=== PATIENT | male | born 1940 | race Caucasian/White ===

== ENCOUNTER → 2017-09-05 07:52 | Outpatient (CLI) | payer MEDICARE, BC, SELFPAY | PROVIDERS: Family Provider Internal Medicine; PCP Internal Medicine; Visit Provider Urology | DX: C61 Malignant neoplasm of prostate (principal) | CPT/HCPCS: 36415; 84153 ==

== ENCOUNTER → 2017-09-14 08:20 | Outpatient (CLI) | payer MEDICARE, BC, SELFPAY ==
--- NOTE | 2017-09-14 08:23 | NM_ITS ---
CLINICAL: 77-year-old male with reported history of carcinoma of the prostate. WHOLE BODY 99m Tc MDP RADIONUCLIDE BONE SCINTIGRAPHY COMPARISON: None available FINDINGS: Following the intravenous administration of 27.2 mCi of 99m Tc MDP, whole body bone images reveal: 1. Multifocal increased radiopharmaceutical concentration is identified in the axial skeletal structures to include the proximal-mid sternum, left proximal clavicle, several bilateral anterior and posterior ribs, third, sixth and ninth thoracic vertebra, the first lumbar vertebra, the right iliac crest and iliac wing as well as focally apparent in the distal left femoral diaphysis and right proximal femoral metaphysis, the left mandibular ramus. 2. Enhanced tracer concentration is identified in the mid-lower cervical spine posteriorly on the left, fourth lumbar vertebra posteriorly on the left, bilateral posterior sacrum, right and left wrist articulations, the midfoot bilaterally, right forefoot, the acromioclavicular compartments of both shoulders. 3. The remaining skeletal structures are scintigraphically unremarkable with normal-appearing renal images and urinary bladder activity identified. Facilitated uptake noted in the bilateral mandible is most consistent with periostitis and/or periodontal disease. NM/Bone Scan Whole Body IMPRESSION: 1. The increase in radiopharmaceutical concentration multifocally defined in the appendicular, axial skeleton described above is consistent with osseous metastatic disease. 2. Degenerative arthritis is otherwise expressed in the cervical and lumbar spine, sacrum, wrists bilaterally, right-left midfoot, the right forefoot and bilateral shoulders. Electronically Signed: Robin Rose DO at 12:08 EST Tel , Service support ,
== END ==
PROVIDERS: Family Provider Internal Medicine; PCP Internal Medicine; Visit Provider Urology
DX: C61 Malignant neoplasm of prostate (principal)
CPT/HCPCS: 78306

== ENCOUNTER 2017-09-15 10:15 | Inpatient (IN) | payer MEDICARE, BC, SELFPAY ==
[2017-09-15] VITALS (14 sets, daily range): BP systolic 129–158; BP diastolic 74–89; PULSE 75–99; RESP 14–95; TEMP 36.6; O2SAT 22–96; BMI 33.5; BMI 33.6; BMI 33.1
--- NOTE | 2017-09-15 10:20 | EKG12_ITS ---
Test Reason : CP Blood Pressure : / mmHG Vent. Rate : 091 BPM Atrial Rate : 091 BPM P-R Int : 160 ms QRS Dur : 096 ms QT Int : 352 ms P-R-T Axes : 046 -09 046 degrees QTc Int : 432 ms Normal sinus rhythm Normal ECG Confirmed by ADAMS MCLAUGHLIN, JANEL ([id number]), technical editor CRISTINA OSHEA ([id number]) on 09/18/2017 12:58:28 PM Referred By: Eriberto Sibley Confirmed By:JANEL LAMAS MD
--- NOTE | 2017-09-15 10:20 | RAD_ITS ---
STUDY: X-RAY CHEST REASON FOR EXAM: Male, 77 years old. 3 week history of increasing shortness of breath. TECHNIQUE: AP and lateral views of the chest. COMPARISON: None. FINDINGS: EKG electrodes are seen. Mild degree of vascular congestion. Mild increased markings at the lung bases suggestive of mild bibasilar atelectasis and/or linear scarring. Normal size heart. Normal mediastinum and ame. Normal visualized pulmonary arteries. There is atherosclerotic tortuosity of the aortic arch and descending thoracic aorta. There are diffuse degenerative changes of the visualized thoracic spine. Normal visualized ribs, clavicles, and shoulders. There is no demonstrated abnormality of the visualized soft tissue structures of the upper abdomen. RAD/Chest PA and Lateral IMPRESSION: Mild degree of vascular congestion. Electronically Signed: Tobi Murrieta MD at 10:52 EST Tel [phone], Service support ,
[2017-09-15 10:41] LABS: Absolute Lymphocyte Count 0.73 X10^3/ul (0.83-4.51); Basophil# 0.04 X10^3/uL; Basophil% 0.5 % (0-1); Eosinophil# 0.12 X10^3/uL; Eosinophils% 1.4 % (0-5); Hematocrit 45.3 % (40-54); Hemoglobin 15.3 g/dl (13.0-16.5); Lymphocyte # 0.73 X10^3/ul (4.0); Lymphocyte % 8.5 % (19-41); Mean Corp Hgb Conc 33.8 g/gl (32-36); Mean Corpuscular Hgb 31.7 pg (27.0-32.0); Mean Corpuscular Volume 93.8 fL (80-94); Mean Platelet Vol. 10.6 fl (6.2-12.0); Monocyte# 0.64 X10^3/uL; Monocyte% 7.4 % (0-10); Neutrophil # 7.04 X10^3/uL (2.7-7.7); Neutrophil % 81.7 % (47-70); Platelet Count 181 K/mm3 (150-450); RBC Distribution Width CV 12.9 % (11.6-14.6); RBC Distribution Width SD 43.1 fl (35.1-43.9); Red Blood Count 4.83 M/mm3 (4.6-6.2); White Blood Count 8.6 K/mm3 (4.4-11.0)
[2017-09-15 10:42] LABS: POSITIVE COUNT NO; POSITIVE DIFFERENTIAL NO; POSITIVE MORPHOLOGY NO
--- NOTE | 2017-09-15 10:44 | ED.RN ---
NO OLD EKG
[2017-09-15] MEDS: Ondansetron 4 MG/2 ML Vial IV (10:49)
[2017-09-15 11:03] LABS: Lactic Acid 1.3 mmol/L (0.4-2.0)
[2017-09-15 12:05] LABS: BNP,B-Type NATRIURETIC PEPTIDE 20.2 pg/mL (0-100)
[2017-09-15 12:55] LABS: Anion Gap 6 (5-15); BUN 23 mg/dL (7-18); BUN/Creat Ratio 30.2 RATIO (10-20); Chloride 105 mmol/L (98-107); Creatinine, Serum 0.76 mg/dL (0.70-1.30); EST Glomerular Filtration Rate 106 mL/min (>60); Est Glom Filt Rate - Afr Amer 128 mL/min (>60); Estimated Creatinine Clearance 63.88 ml/min; Glucose 150 mg/dL (74-106); Sodium Level 140 mmol/L (136-145)
--- NOTE | 2017-09-15 13:50 | ED.DCSUM_ITS ---
- ER Visit Summary Date of Service: 09/15/17 Chief Complaint: Pleuritic chest pain and back pain that started 3 weeks ago resents because of midsternal chest discomfort with dyspnea and palpitations. History of Present Illness: The patient is a 77 M has history of type 2 diabetes for 10 years presents with atypical chest pain and dyspnea. Last evening he complained of orthopnea and noted that his legs are swollen, which is not normal for him. He has no complaint of leg pain or discoloration. He denies history of PE or DVT. He has no risk factors. States the pain is in the middle of his chest radiates to both shoulders and through to his back. He did not describe it as a ripping or tearing pain. He has no risk factors for aortic dissection. He denies symptoms of claudication. Physical Examination: Patient is an obese gentleman with a BMI of 33. Vital signs remarkable blood pressure 158/88. Respiratory rate 22 with a pulse ox 95% . Head is atraumatic normocephalic. Pupils are equal round reactive. Extraocular muscles are intact. TMs are pearly white with landmarks noted. Nares patent with no drainage. Posterior pharynx without erythema or exudate. Uvula is midline. There is no dysphonia or dysphasia. Trachea is midline. There is no stridor with auscultation of the neck. Lungs are remarkable for rales at the left base. Heart is rapid and regular. There is no murmur, gallop or rub. Abdomen is soft nontender with no palpable subtle mass or abdominal bruit. Lower extremity exam is remarkable 1-2+ pitting edema. Pulses are palpable upper and lower extremity. Neuro exam is nonfocal. Test Results: The sinus rhythm rate of 91 and normal. CBC is normal. BMP is remarkable for a glucose of 150. Troponin is less than 0.02. BNP is normal at 20.2. Lactate is normal at 1.2. Chest x-ray reveals normal mediastinal cardiac silhouette with mild CHF. Emergency Department Course and Treatment: Differential includes noncardiac chest pain, GI etiology, aortic dissection however since he has no risk factors this is been going on for 3 weeks and not described as a ripping or tearing pain and having a crescendo and decrescendo in intensity feel this is unlikely. He was treated with aspirin. Treatment Plan: Since patient has lymphedema with new onset CHF and chest pain with a history of diabetes he may have an atypical presentation. Hospitalist has been paged for admission and further workup. Disposition: PCU Impression: 1. Midsternal chest discomfort 2. Dyspnea 3. Mild congestive heart failure 4. Bilateral lymphedema 5. Hypertension in a nonhypertensive patient This note was generated with [employer] dictation software. It may contain incorrect words, spelling, and punctuation that were not noted in review of the chart prior to signing ED Disposition - Plan for ED Patient: Chief Complaint: Chest Pain Referrals: Claudio Schmitz MD [Primary Care Provider] -
--- NOTE | 2017-09-15 16:28 | ECHOD_ITS ---
Version 2 Reason For Study: CHF Procedure This was a 2D Doppler, Color Flow transthoracic echocardiogram. Exam performed portable in patient room. Left Ventricle Normal LV size. Mild concentric left ventricular hypertrophy. The estimated ejection fraction is 65 %. Stage 2 diastolic dysfunction. Right Ventricle Normal right ventricle. Atria Normal left atrium. Normal right atrium. Mitral Valve The mitral valve is structurally normal. No prolapse or stenosis seen. Trivial mitral valve insufficiency. Tricuspid Valve Mild tricuspid valve insufficiency. Right ventricular systolic pressure estimated to be 40 mmHg. Aortic Valve Aortic sclerosis, no stenosis. Pulmonic Valve Mild (1+) eccentric pulmonic valve insufficiency. Great Vessels Normal aortic root. Pericardium/Pleural No pericardial effusion. MMode/2D Measurements & Calculations LVIDd: 4.5 cm IVSd: 1.2 cm Ao root diam: 3.6 cm LVIDs: 2.7 cm LVPWd: 0.98 cm LA dimension: 3.9 cm RVDd: 3.8 cm FS: 38.6 % LAV(MOD-bp): 52.1 ml LA A4 area: 20.1 cm2 RA A4 area: 12.5 cm2 LAV(MOD-bp) Indexed: 23.4 ml/m2 LAV(MOD-sp2): 43.8 ml LAV(MOD-sp4): 56.7 ml Doppler Measurements & Calculations MV E max aric: 100.1 cm/sec Lat Peak E' Aric: 8.8 cm/sec Med Peak E' Aric: 7.7 cm/sec MV A max aric: 131.7 cm/sec E/E' lat: 11.3 E/E' med: 12.9 MV E/A: 0.76 Ao V2 max: 156.9 cm/sec LV V1 max: 123.0 cm/sec PA V2 max: 86.7 cm/sec Ao max P.8 mmHg LV V1 max P.1 mmHg Ao V2 mean: 109.2 cm/sec Ao mean P.3 mmHg Ao V2 VTI: 31.3 cm TR max aric: 295.8 cm/sec TR max P.3 mmHg Interpretation Summary Mild concentric left ventricular hypertrophy. The estimated ejection fraction is 65 %. Stage 2 diastolic dysfunction. Mild tricuspid valve insufficiency. Right ventricular systolic pressure estimated to be 40 mmHg., suggestive of mild pulmonary hypertension Ordering Physician: Kerri Proctor Referring Physician: Claudio Schmitz Performed By: Cher Urbano, RORY, RVT
--- NOTE | 2017-09-15 16:28 | CT_ITS ---
STUDY: CTA CHEST REASON FOR EXAM: Male, 77 years old. Chest pain RADIATION DOSAGE (If Supplied By Facility): CTDIvol = ( 11.08 ) mGy, DLP = ( 667.21 ) mGycm TECHNIQUE: The examination was performed with the intravenous administration of 100CC ml of Isovue 370 contrast material. Post-processing of the angiographic images was performed, with multiplanar reformation and 3D reconstruction. Individualized dose optimization techniques were used for this CT. COMPARISON: None. FINDINGS: Examination of the pulmonary arteries is less than optimal due to suboptimal bolus technique and respiratory motion artifact.. There is no definitive evidence for pulmonary embolus however if strong clinical concern for poor embolus would recommend V/Q scan and Doppler study of the deep venous system of lower extremities Atherosclerotic changes of the aorta without evidence for aneurysm. There is no demonstrated aortic dissection. The heart is upper normal size however there appears to be multivessel coronary artery disease. There is multinodular goiter with retrosternal extension on the left Normal hilar regions. Normal visualized trachea and bronchi. The lungs are well expanded. There is mild diffuse interstitial thickening and centrilobular emphysematous changes. There is tiny calcified granuloma in left upper lobe. There is generalized bronchial wall thickening in the lower lobes. There also appear to be bibasilar infiltrates or atelectasis. Normal pleura. Normal chest wall structures. Dorsal spine demonstrates moderate spondylosis There are focal areas of increased bony sclerosis within the dorsal vertebral bodies at approximately the levels of T3 and T6 consistent with blastic metastasis. There is suggestion of pathologic fracture of T6. MRI would be helpful for further assessment There are multiple cysts within the liver. Small hypodense nodule within the left lobe of the thyroid most likely benign adenoma however this may be better assessed with MRI if clinically indicated CT/CTA Chest W/WO Contrast IMPRESSION: Limited study technically for pulmonary embolus but no definitive evidence for intraluminal clot. 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 MRI would be useful for more definitive evaluation if clinically warranted. Bibasilar atelectasis or infiltrates. Electronically Signed: Anthony Brito MD at 17:47 EST , Service support ,
--- NOTE | 2017-09-15 17:10 | PCM.HP.STD ---
Problem List (1) Chest pain Status: Acute Qualifiers: Chest pain type: chest pain on breathing Qualified Code(s): R07.1 - Chest pain on breathing; R07.81 - Pleurodynia (2) Dyspnea Status: Acute Qualifiers: Dyspnea type: shortness of breath Qualified Code(s): R06.02 - Shortness of breath; R06.00 - Dyspnea, unspecified; R06.01 - Orthopnea (3) Pulmonary edema Status: Acute (4) DM2 (diabetes mellitus, type 2) Status: Chronic Qualifiers: Diabetes mellitus complication status: without complication Diabetes mellitus supervisor intermediates insulin use: without fdc use Qualified Code(s): E11.9 - Type 2 diabetes mellitus without complications (5) History of prostate cancer Status: Chronic History of Present Illness Date of Admission: 09/15/17 Chief Complaint: Chest pain, dyspnea Patient is a 77 years old male who presents with 3 weeks history of sharp, intermittent, brief pain in the posterior chest wall, which seems to be moving all over his back. He also has increasing shortness of breath, along with orthopnea. He denied of any cough, dizziness, palpitations, or wheezing. He has no prior cardiac problems or pulmonary problems. Troponin was normal, BNP was 20, however, CXR showed mild degree of vascular congestion. He is concerned of peripheral edema, but he has no edema on examination today. Past Medical History Past Medical History (Chronic Problems): Chronic Problems DM2 (diabetes mellitus, type 2) (Chronic) History of prostate cancer (Chronic) Allergies No Known Allergies Allergy (Verified 09/15/17 10:22) Home Medications: Ambulatory Orders Medication Instructions Recorded Fluticasone 0.05% [Flonase Nasal 1 spray NASAL DAILY 09/15/17 Almond] Metformin HCl [Glucophage] 500 mg PO DAILY 09/15/17 Multivitamin [Daily Multiple 1 each PO DAILY 09/15/17 Vitamin] Zolpidem Tartrate [Ambien] 5 - 10 mg PO QHS 09/15/17 Smoking Status: Former smoker Tobacco Use: Non-smoker Alcohol: None Drugs: None - *Family History Maternal History Items: No pertinent history Review of Systems Comment: ROS: In general: Patient has been in good health, denied of any constitutional symptoms, such as weight loss, or gain, fever, chills, or night sweats. Patient denied of any profound fatigue. HEENT: Unremarkable. Patient denied of any dizziness, chronic headache, blurred vision, double vision, dry mouth, or nasal congestion. CV/respiratory: See HPI. GI: Patient denied any abdominal pain, nausea, vomiting, diarrhea, constipation, melena, or hematochezia. : Patient denied any significant urinary symptoms. Neurology: Unremarkable. There is no history of seizure as an adult. Psychological: Unremarkable. ?. Endocrine: Unremarkable. Musculoskeletal: Unremarkable. VTE Information - Inpt Only VTE Present on Admission: No VTE Mechan Device Prophylaxis: SCD's VTE Pharm Prophylaxis ordered?: Yes Patient Problems: Active and Suspected Problems Chest pain (Acute) Dyspnea (Acute) Pulmonary edema (Acute) Objective: In general, patient is a well-nourished and developed adult. HEENT: Head is atraumatic, and normocephalic. Pupils are equal, round, and reactive to light and accommodations. Neck is supple. There is no lymphadenopathy, or thyromegaly. Oral mucosa is pink, and moist. There are no lesions. Heart: Auscultation is normal with regular rhythm and rate. There is no extra heart sounds, or murmurs. S1 and S2 are present. Point of maximal impulse is not displaced. Chest pain not reproducible. Lungs: Diffuse wheezing bilaterally at upper lung guy. Abdomen: Abdominal wall is non-tender, and non-distended. There is no palpable mass or organomegaly. Normoactive bowel sounds are present. Extremities: There is no cyanosis or clubbing. Peripheral pulses are palpable. There is no edema. Skin: There are no any skin discoloration or lesions. Neurological: CN II - XII are intact. Sensory and motor functions are grossly normal with no obvious deficit. Cerebellar functions are within normal range. Gait was not tested. - Physical Exam Vital Signs Temp Pulse Resp BP Pulse Ox 98 F 99 18 132/89 H 94 09/15/17 16:35 09/15/17 16:41 09/15/17 16:35 09/15/17 16:35 09/15/17 16:35 Oxygen Delivery Method Room Air Weight: 230 lb 13.184 oz Body Mass Index (BMI) 33.1 Diagnostic Data Chest X-Ray 09/15/17 10:20 IMPRESSION: Mild degree of vascular congestion. Electronically Signed: Tobi Murrieta MD at 10:52 EST Tel [phone], Service support , WHOLE BODY 99m Tc MDP RADIONUCLIDE BONE SCINTIGRAPHY COMPARISON: None available FINDINGS: Following the intravenous administration of 27.2 mCi of 99m Tc MDP, whole body bone images reveal: 1. Multifocal increased radiopharmaceutical concentration is identified in the axial skeletal structures to include the proximal-mid sternum, left proximal clavicle, several bilateral anterior and posterior ribs, third, sixth and ninth thoracic vertebra, the first lumbar vertebra, the right iliac crest and iliac wing as well as focally apparent in the distal left femoral diaphysis and right proximal femoral metaphysis, the left mandibular ramus. 2. Enhanced tracer concentration is identified in the mid-lower cervical spine posteriorly on the left, fourth lumbar vertebra posteriorly on the left, bilateral posterior sacrum, right and left wrist articulations, the midfoot bilaterally, right forefoot, the acromioclavicular compartments of both shoulders. 3. The remaining skeletal structures are scintigraphically unremarkable with normal-appearing renal images and urinary bladder activity identified. Facilitated uptake noted in the bilateral mandible is most consistent with periostitis and/or periodontal disease. NM/Bone Scan Whole Body IMPRESSION: 1. The increase in radiopharmaceutical concentration multifocally defined in the appendicular, axial skeleton described above is consistent with osseous metastatic disease. 2. Degenerative arthritis is otherwise expressed in the cervical and lumbar spine, sacrum, wrists bilaterally, right-left midfoot, the right forefoot and bilateral shoulders. Assessment/Plan Active and Suspected Problems Chest pain (Acute) Dyspnea (Acute) Pulmonary edema (Acute) Patient is a 77 years old male who presents with 3 weeks history of sharp, intermittent, brief pain in the posterior chest wall, which seems to be moving all over his back. He also has increasing shortness of breath, along with orthopnea. He denied of any cough, dizziness, palpitations, or wheezing. He has no prior cardiac problems or pulmonary problems. Troponin was normal, BNP was 20, however, CXR showed mild degree of vascular congestion. #1 Atypical chest pain with dyspnea. BNP is normal, but CXR is consistent with pulmonary edema. He has atypical chest pain, concerning of PE. CTA of chest ordered, result is pending. Rule out myocardial infarction with serial enzymes. Oxygen supplement. He has significant bronchospasm with wheezing. Start DuoNeb aerosol treatment and albuterol Med Neb prn. Lasix 20 mg IV bid for presumed pulmonary edema with possible CHF. 2D-echocardiogram requested. #2 History of prostate cancer. He had elevation of PSA recently. Urology had ordered bone scan on 09/14/17. I just reviewed the result, which is consistent with metastatic disease. Consult urology also. #3 DM II. Hold metformin. Add sliding scale insulin. VTE prophylaxis: Lovenox. GI prophylaxis: PPI po. Patient is full code. Disposition: To be determined. Code Visit Inpatient E&M: 99391 Init Hosp L3
[2017-09-15 18:21] LABS: Bedside Glucose 191 mg/dL (70-110)
[2017-09-15] MEDS: Ipratropium/Albuterol Sulfate 3 ML AMPUL.NEB INHALATION (19:39)
[2017-09-15] MEDS: Furosemide 20 MG/2 ML VIAL IV (22:14)
[2017-09-15] MEDS: 0.9% NaCl Peripheral Flush Adult/Peds IV (22:14)
[2017-09-15 22:26] LABS: Bedside Glucose 191 mg/dL (70-110)
[2017-09-16] VITALS (9 sets, daily range): BP systolic 119–143; BP diastolic 57–65; PULSE 77–91; RESP 16–20; TEMP 36.5–36.9; O2SAT 92–96
[2017-09-16] MEDS: Acetaminophen 325 MG Tablet 650 MG PO (00:27)
[2017-09-16] MEDS: Zolpidem Tartrate 5 MG Tablet PO (00:27)
[2017-09-16 03:08] LABS: Hematocrit 43.4 % (40-54); Hemoglobin 14.4 g/dl (13.0-16.5); Mean Corp Hgb Conc 33.2 g/gl (32-36); Mean Corpuscular Hgb 31.2 pg (27.0-32.0); Mean Corpuscular Volume 93.9 fL (80-94); Mean Platelet Vol. 10.6 fl (6.2-12.0); Platelet Count 157 K/mm3 (150-450); RBC Distribution Width CV 12.9 % (11.6-14.6); RBC Distribution Width SD 44.2 fl (35.1-43.9); Red Blood Count 4.62 M/mm3 (4.6-6.2); White Blood Count 13.3 K/mm3 (4.4-11.0)
[2017-09-16 03:13] LABS: Scan Indicated on CBC? Y/N NO
[2017-09-16 05:35] LABS: Anion Gap 14 (5-15); BUN 21 mg/dL (7-18); BUN/Creat Ratio 26.5 RATIO (10-20); Calcium,Total 8.5 mg/dL (8.5-10.1); Chloride 100 mmol/L (98-107); Cholesterol 134 mg/dL (200); Creatinine, Serum 0.79 mg/dL (0.70-1.30); EST Glomerular Filtration Rate 101 mL/min (>60); Est Glom Filt Rate - Afr Amer 122 mL/min (>60); Estimated Creatinine Clearance 63.88 ml/min; Glucose 174 mg/dL (74-106); High Density Lipoprotein 56 mg/dL; Potassium 3.5 mmol/L (3.5-5.1); Sodium Level 135 mmol/L (136-145); Thyroid Stim Hormone (TSH) 0.34 uIU/mL (0.358-3.74); Triglycerides 50 mg/dL; Very Low Density Lipoprotein 10 mg/dL (5-40)
[2017-09-16 07:11] LABS: Bedside Glucose 143 mg/dL (70-110)
[2017-09-16] MEDS: Ipratropium/Albuterol Sulfate 3 ML AMPUL.NEB INHALATION ×2 (07:14→13:01)
[2017-09-16] MEDS: Aspirin E.C. 81 MG Tablet PO (09:16)
[2017-09-16] MEDS: Enoxaparin 40 MG/0.4 ML Syringe SC (09:18)
[2017-09-16] MEDS: Pantoprazole Sodium 20 MG Tablet PO (09:19)
--- NOTE | 2017-09-16 10:08 | CASEMGMT ---
Chart Review: Pt presented to the ED on 09/15/17 with c/o pleuritic chest pain and back pain that started 3 weeks ago, and states increasing midsternal chest discomfort with dyspnea and palpitations. Patient underwent Chest CTA which revealed suspicious finding of probable blastic mets to the upper and mid thoracic spine with findings also suspicious for pathologic fracture of the mid dorsal spine at approximately the level ot T6. Past medical history includes history DM2 and prostate cancer. Dr. Dumont was consulted. Patient is independent, up SBA in hospital room, established with community providers, has insurance, and is . Patient's spouse has been ill and he has voiced concern for her and is worried about the possible metastatic disease. Patient uses [facility] at [facility] and has prescription covered. OBI GUTIERREZ made social work referral for coping and biopsychosocial assessment. RN BRENDA will continue to follow for transition planning and care coordination. Disposition Plan: Anticipate home, final transition planning/care coordination/home-going needs TBD by hospital course.
[2017-09-16 11:16] LABS: Bedside Glucose 167 mg/dL (70-110)
--- NOTE | 2017-09-16 12:50 | CASEMGMT ---
SW spoke w/pt in room due to diagnosis, needing support, also being sick. Pt's sons Og and Danny are in the room as well. Pt states spoke w/the two hospitalists, is hoping to speak w/Dr. Dumont today to get further information. Pt lives home w/, he states she has the flu possibly, is not feeling well and is weak. has not been to the doctor yet. Pt and are normally independent at home, pt states his sons are helpful whenever anything is needed. Og lives local and helps with snowblowing or whatever else is needed. Son Danny normally lives in [place] but is in town right now. Son Og confirms his parents are independent but they are available to help with anything that is needed. Pt states he also has a daughter in [place] who is supportive as well. Pt and family not identifying any physical or supportive needs at this time. Pt does not anticipate any homegoing needs. Pt does have questions for Dr. Dumont, asked if he is coming in. SW checked w/charge account clerk, Dr. Dumont is consulted and has been contacted. SW let pt and sons know this. SW remains available for support to pt and family as more is learned about his diagnosis. YEISON Calvo, [employer] COUNTER [employer] WR[employer]PER
--- NOTE | 2017-09-16 13:08 | PCM.PROGNOTE ---
<Daylin Ray - Last Filed: 09/16/17 13:30> Subjective: Patient seen and examined. Denies chest pain, shortness of breath. States he feels generally weak due to not sleeping well last night. States he has not been having chest pain prior to admission, his pain was located in his back, between shoulder blades and associated with activity involving repetitive movements of upper extremities. He describes recently washing his vehicle and pain began during that time. Patient states he is very active and walks on a treadmill frequently approximately 20 minutes at a time. He denies chest pain, shortness of breath during walking on the treadmill or other exertion. - Physical Exam General: Alert, Oriented x3, Cooperative, No apparent distress HEENT: Atraumatic, PERRLA, EOMI, Normocephalic Neck: Supple, No JVD, Negative Carotid Bruits Lungs: Clear to auscultation, Diminished Cardiovascular: Regular rate, Regular Rhythm, Normal S1, Normal S2, No murmurs Abdomen: Bowel Sounds Present, Soft, Non Tender, Non-Distended Extremities: No clubbing, No cyanosis, Edema - Non-pitting BLLE. Skin: No rashes, No breakdown Musculoskeletal: No Tenderness to Palpation of Joints or Extremities Neurological: Cranial nerves II-XII grossly intact, Neuro grossly intact Psych/Mental Status: Normal Affect, Appropriate Vital Signs Temp Pulse Resp BP Pulse Ox 98 F 81 18 124/64 H 95 09/16/17 10:00 09/16/17 13:02 09/16/17 13:02 09/16/17 10:00 09/16/17 10:00 Oxygen Flow Rate 2 Oxygen Delivery Method Room Air Weight: 104.7 kg Body Mass Index (BMI) 33.1 Intake and Output for Last 24 Hours 09/14/17 09/15/17 09/16/17 23:59 23:59 23:59 Intake Total 720 / 720 1080 / 1080 Balance 720 / 720 1080 / 1080 Laboratory Tests Past 24 Hrs 09/15/17 09/15/17 09/16/17 17:01 20:41 02:48 WBC RBC Hgb Hct MCV MCH MCHC RDW RDW Differential Plt Count MPV Sodium 135 L Potassium 3.5 Chloride 100 Carbon Dioxide 21.0 Anion Gap 14 BUN 21 H Creatinine 0.79 Estim Creat Clear Calc 63.88 Est GFR (MDRD) Af Amer 122 Est GFR (MDRD) Non-Af 101 BUN/Creatinine Ratio 26.5 H Glucose 174 H Calcium 8.5 Troponin I < 0.02 < 0.02 Triglycerides 50 Cholesterol 134 LDL Cholesterol 68 VLDL Cholesterol 10 HDL Cholesterol 56 TSH 0.34 L 09/16/17 09/16/17 02:48 02:48 WBC 13.3 H RBC 4.62 Hgb 14.4 Hct 43.4 MCV 93.9 MCH 31.2 MCHC 33.2 RDW 12.9 RDW Differential 44.2 H Plt Count 157 MPV 10.6 Sodium Potassium Chloride Carbon Dioxide Anion Gap BUN Creatinine Estim Creat Clear Calc Est GFR (MDRD) Af Amer Est GFR (MDRD) Non-Af BUN/Creatinine Ratio Glucose Calcium Troponin I < 0.02 Triglycerides Cholesterol LDL Cholesterol VLDL Cholesterol HDL Cholesterol TSH POC Glucose 09/16/17 09/16/17 09/15/17 11:10 06:58 22:09 POC Glucose 167 H 143 H 191 H 09/15/17 18:04 POC Glucose 191 H Assessment/Plan 1. Back pain-patient denies chest pain. Denies pain radiation. Patient states is pain between his shoulder blades which is related to repetitive movement. Troponin negative. EKG without evidence of ischemia. 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 Osseous metastatic disease. Suspect his pain may be related to bone metastasis. Dr. Dumont to see patient today and discussed test results that were completed as outpatient, ordered by Dr. Sibley. OxyIR as needed for pain. 2. Pulmonary edema, suspected new onset CHF-CT of chest showed no PE. Chronic emphysematous changes. Possible blastic metastasis in the upper and mid thoracic spine. Bibasilar atelectasis or infiltrates. Patient denies shortness of breath. Oxygen stable on room air. Patient states he chronically gets mild lower extremity edema which he states began after varicose vein intervention. Echocardiogram pending. Continue IV Lasix 20 mg twice daily. 3. Type 2 diabetes mellitus-on metformin which is on hold. Accu-Cheks before meals at bedtime with sliding scale insulin. 4. History of prostate cancer-patient was originally diagnosed 10 years ago and had been in remission. Recently he had noted increase in PSA. Following with Dr. Dumont who is to see patient today. Recent bone scan results as noted above. PSA 09/05/17 15.10. DVT prophylaxis-Lovenox subcu. This patient was seen by RADHA Pina under the supervision of Dr. Ingram. <Nichol Ingram - Last Filed: 09/16/17 15:27> - Physical Exam Vital Signs Temp Pulse Resp BP Pulse Ox 98 F 83 18 124/64 H 95 09/16/17 10:00 09/16/17 13:02 09/16/17 13:02 09/16/17 10:00 09/16/17 10:00 Oxygen Flow Rate 2 Oxygen Delivery Method Room Air Weight: 104.7 kg Body Mass Index (BMI) 33.1 Intake and Output for Last 24 Hours 09/14/17 09/15/17 09/16/17 23:59 23:59 23:59 Intake Total 720 / 720 1080 / 1080 Balance 720 / 720 1080 / 1080 Laboratory Tests Past 24 Hrs 09/15/17 09/15/17 09/16/17 17:01 20:41 02:48 WBC RBC Hgb Hct MCV MCH MCHC RDW RDW Differential Plt Count MPV Sodium 135 L Potassium 3.5 Chloride 100 Carbon Dioxide 21.0 Anion Gap 14 BUN 21 H Creatinine 0.79 Estim Creat Clear Calc 63.88 Est GFR (MDRD) Af Amer 122 Est GFR (MDRD) Non-Af 101 BUN/Creatinine Ratio 26.5 H Glucose 174 H Calcium 8.5 Troponin I < 0.02 < 0.02 Triglycerides 50 Cholesterol 134 LDL Cholesterol 68 VLDL Cholesterol 10 HDL Cholesterol 56 TSH 0.34 L 09/16/17 09/16/17 02:48 02:48 WBC 13.3 H RBC 4.62 Hgb 14.4 Hct 43.4 MCV 93.9 MCH 31.2 MCHC 33.2 RDW 12.9 RDW Differential 44.2 H Plt Count 157 MPV 10.6 Sodium Potassium Chloride Carbon Dioxide Anion Gap BUN Creatinine Estim Creat Clear Calc Est GFR (MDRD) Af Amer Est GFR (MDRD) Non-Af BUN/Creatinine Ratio Glucose Calcium Troponin I < 0.02 Triglycerides Cholesterol LDL Cholesterol VLDL Cholesterol HDL Cholesterol TSH POC Glucose 09/16/17 09/16/17 09/15/17 11:10 06:58 22:09 POC Glucose 167 H 143 H 191 H 09/15/17 18:04 POC Glucose 191 H Assessment/Plan Patient was seen and examined independently of nurse practitioner, Daylin Ray. Interval hx and physical exam as well as assessment and plan as per her notes. Patient feels better. No posterior chest pain. Denies fever or chills or palpitations. 2d-echo is normal. Will be discharged to follow-up with Dr. Dumont. Code Visit Inpatient E&M: 21248 Subs Hosp L2
--- NOTE | 2017-09-16 13:54 | PCM.CONS.GEN ---
Reason for Consult Date of Consultation: 09/16/17 History of Present Illness: The patient is a 77 year old M because of back pain, mild S OB. Patient has a history of CA of prostate. He was treated in 2009 with hormone deprivation and radiation at [facility] in [place]. Stopped after 2 years. His PSA has been continually low. Last year was 1.?, Then had a recent increase up to 15. He was by Dr. Dinero and started on Eligard (3 month LHRH agonist ) and this was started possibly 8-12 days ago. On this admission due to his history he had a bone scan performed which showed metastatic disease involving numerous areas of thoracic spine and right anterior ribs and his PSA is now over 15. At this point as he is on hormone deprivation would also add Casodex 50 mg daily. I will stop the ketoconazole. After receiving the Eligard there is often a testosterone storm, which could increased pain from bony metastatic disease. Over this usually resolves within a few days. Discussion with patient and his sons and the all the room today. At this point would continue with hormone deprivation and plan on adding Casodex at the time of discharge. Would recommend PSA be done prior to his next office visit. He had seen in the past and we discussed a hernia repair. If that still bothers him would proceed with that and bilateral orchiectomy. All this has been discussed with patient as well as other chemotherapy but would not start anything at this time Now recommend starting Casodex 50 mg daily which she can take when he was home. And then follow-up as scheduled in the office with a PSA prior to the next appointment which should be in about 2 months.] Past Medical History Past Medical History (Chronic Problems): Chronic Problems DM2 (diabetes mellitus, type 2) (Chronic) History of prostate cancer (Chronic) Allergies No Known Allergies Allergy (Verified 09/15/17 10:22) Home Medications: Ambulatory Orders Medication Instructions Recorded Fluticasone 0.05% [Flonase Nasal 1 spray NASAL DAILY 09/15/17 [place]] Metformin HCl [Glucophage] 500 mg PO DAILY 09/15/17 Multivitamin [Daily Multiple 1 each PO DAILY 09/15/17 Vitamin] Zolpidem Tartrate [Ambien] 5 - 10 mg PO QHS 09/15/17 Smoking Status: Former smoker Tobacco Use: Non-smoker Alcohol: None Drugs: None - *Family History Maternal History Items: No pertinent history Patient Problems: Active and Suspected Problems Chest pain (Acute) Dyspnea (Acute) Pulmonary edema (Acute) - Physical Exam Vital Signs Temp Pulse Resp BP Pulse Ox 98 F 83 18 124/64 H 95 09/16/17 10:00 09/16/17 13:02 09/16/17 13:02 09/16/17 10:00 09/16/17 10:00 Oxygen Flow Rate 2 Oxygen Delivery Method Room Air Weight: 104.7 kg Body Mass Index (BMI) 33.1 Intake and Output for Last 24 Hours 09/14/17 09/15/17 09/16/17 23:59 23:59 23:59 Intake Total 720 / 720 1080 / 1080 Balance 720 / 720 1080 / 1080 Laboratory Tests Past 24 Hrs 09/15/17 09/15/17 09/16/17 17:01 20:41 02:48 WBC RBC Hgb Hct MCV MCH MCHC RDW RDW Differential Plt Count MPV Sodium 135 L Potassium 3.5 Chloride 100 Carbon Dioxide 21.0 Anion Gap 14 BUN 21 H Creatinine 0.79 Estim Creat Clear Calc 63.88 Est GFR (MDRD) Af Amer 122 Est GFR (MDRD) Non-Af 101 BUN/Creatinine Ratio 26.5 H Glucose 174 H Calcium 8.5 Troponin I < 0.02 < 0.02 Triglycerides 50 Cholesterol 134 LDL Cholesterol 68 VLDL Cholesterol 10 HDL Cholesterol 56 TSH 0.34 L 09/16/17 09/16/17 02:48 02:48 WBC 13.3 H RBC 4.62 Hgb 14.4 Hct 43.4 MCV 93.9 MCH 31.2 MCHC 33.2 RDW 12.9 RDW Differential 44.2 H Plt Count 157 MPV 10.6 Sodium Potassium Chloride Carbon Dioxide Anion Gap BUN Creatinine Estim Creat Clear Calc Est GFR (MDRD) Af Amer Est GFR (MDRD) Non-Af BUN/Creatinine Ratio Glucose Calcium Troponin I < 0.02 Triglycerides Cholesterol LDL Cholesterol VLDL Cholesterol HDL Cholesterol TSH POC Glucose 09/16/17 09/16/17 09/15/17 11:10 06:58 22:09 POC Glucose 167 H 143 H 191 H 09/15/17 18:04 POC Glucose 191 H Assessment/Plan Active and Suspected Problems Chest pain (Acute) Dyspnea (Acute) Pulmonary edema (Acute)
--- NOTE | 2017-09-16 14:45 | PCM.DC ---
- Discharge Diagnoses Current Active Problems: Current Active and Chronic Problems Chest pain (Acute) Dyspnea (Acute) Pulmonary edema (Acute) DM2 (diabetes mellitus, type 2) (Chronic) History of prostate cancer (Chronic) You will use the following diet at home:: No restrictions Discharge Activity: Return to Normal Activity Call your doctor if you observe: Fever of 101 or Higher, Shortness of breath, Dizziness, Fainting spells, Chest pain, Increased palpitations (irregular heartbeat) Allergies/Adverse Reactions: Allergies No Known Allergies Allergy (Verified 09/15/17 10:22) Medications to take at Discharge Fluticasone 0.05% [Flonase Nasal [place]] 1 spray NASAL DAILY 09/15/17 Metformin HCl [Glucophage] 500 mg PO DAILY 09/15/17 Multivitamin [Daily Multiple Vitamin] 1 each PO DAILY 09/15/17 Zolpidem Tartrate [Ambien] 5 - 10 mg PO QHS 09/15/17 Bicalutamide [Casodex] 50 mg PO DAILY #30 tab 09/16/17 The following prescriptions were given: Bicalutamide [Casodex] 50 mg PO DAILY #30 tab Primary Care Physician: Claudio Schmitz MD [Primary Care Provider] - Please follow up with your Primary Care Physician in: 1-2 Weeks Please Follow Up With: Eriberto Sibley MD - Complete PSA prior to office visit. When: 6-8 Weeks Proposed Discharge Date: 09/16/17
--- NOTE | 2017-09-16 14:57 | DS.PCM_ITS ---
Discharge Date and Diagnosis Date of Admission: 09/15/17 Date of Discharge: 09/16/17 - Primary Discharge Diagnosis Active and Suspected Problems Back pain- secondary to new dx bony metastatic disease Recurrent prostate cancer Mild pulmonary edema with preserved ejection fraction - Secondary Discharge Diagnosis Chronic Problems DM2 (diabetes mellitus, type 2) (Chronic) History of prostate cancer (Chronic) Hospital Course and Treatment Imaging Results: Diagnostic Data Chest X-Ray 09/15/17 10:20 IMPRESSION: Mild degree of vascular congestion. Electronically Signed: Tobi Murrieta MD at 10:52 EST Tel [phone], Service support , Chest CTA 09/15/17 16:28 IMPRESSION: Limited study technically for pulmonary embolus but no definitive evidence for intraluminal clot. 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 MRI would be useful for more definitive evaluation if clinically warranted. Bibasilar atelectasis or infiltrates. Electronically Signed: Anthony Brito MD at 17:47 EST , Service support , Dr. Dumont- Urology Operations: None Procedures: 2-D Echocardiogram Summary of Care Provided: Patient is a 77-year-old female admitted 09/16/2017 due to intermittent back pain. States he has not been having chest pain prior to admission, his pain was located in his back, between shoulder blades and associated with activity involving repetitive movements of upper extremities. He describes recently washing his vehicle and pain began during that time. Patient states he is very active and walks on a treadmill frequently approximately 20 minutes at a time. He denies chest pain, shortness of breath during walking on the treadmill or other exertion. 1. Back pain-patient denies chest pain. Denies pain radiation. Patient states is pain between his shoulder blades which is related to repetitive movement. Troponin negative. EKG without evidence of ischemia. 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 Osseous metastatic disease. Suspect his pain may be related to bone metastasis and recent administration of Eligard which can result in testosterone storm and increased pain from bony metastatic disease. Patient was started on Casodex 50 mg daily at discharge under the recommendation of Dr. Dumont. Patient will have PSA completed prior to next office visit with Dr. Sibley, who he should see in 6-8 weeks. No plans for chemotherapy at this time. Urology discussed with patient possible referral to oncology in the future. 2. History of prostate cancer-patient was originally diagnosed 10 years ago and had been in remission. Recently he had noted increase in PSA. Following with Dr. Dumont/Dr. Sibley who saw patient during admission. Recent bone scan results as noted above. PSA 09/05/17 15.10. Discharge and follow up plan as noted above. 3. Pulmonary edema as noted on CT, mild-chest x-ray on admission showed mild vascular congestion. Patient did receive IV Lasix. BNP normal. He denies shortness of breath. Oxygen stable on room air. No edema. Lungs clear. CT of chest showed no PE. Chronic emphysematous changes. Possible blastic metastasis in the upper and mid thoracic spine. Bibasilar atelectasis or infiltrates. Echocardiogram showed an estimated ejection fraction of 65%, mild tricuspid valve insufficiency, RVSP estimated to be 40 mmHg, suggestive of mild pulmonary hypertension. Recommend outpatient sleep study as ordered by primary care physician in the future. General: Alert, Oriented x3, Cooperative, No apparent distress HEENT: Atraumatic, PERRLA, EOMI, Normocephalic Neck: Supple, No JVD, Negative Carotid Bruits Lungs: Clear to auscultation, Diminished Cardiovascular: Regular rate, Regular Rhythm, Normal S1, Normal S2, No murmurs Abdomen: Bowel Sounds Present, Soft, Non Tender, Non-Distended Extremities: No clubbing, No cyanosis, Edema - Non-pitting BLLE. Skin: No rashes, No breakdown Musculoskeletal: No Tenderness to Palpation of Joints or Extremities Neurological: Cranial nerves II-XII grossly intact, Neuro grossly intact Psych/Mental Status: Normal Affect, Appropriate Patient seen and examined prior to discharge. Physical assessment as noted above. Patient is stable for discharge home with the recommendations as noted above. This patient was seen by RADHA Pina under the supervision of Dr. Ingram. Discharge Diet: No Restrictions Discharge Activity: Return to Normal Activity Call your doctor if you observe: Fever of 101 or Higher, Shortness of breath, Dizziness, Fainting spells, Chest pain, Increased palpitations (irregular heartbeat) Home Medications: Medications to take at Discharge Fluticasone 0.05% [Flonase Nasal [place]] 1 spray NASAL DAILY 09/15/17 Metformin HCl [Glucophage] 500 mg PO DAILY 09/15/17 Multivitamin [Daily Multiple Vitamin] 1 each PO DAILY 09/15/17 Zolpidem Tartrate [Ambien] 5 - 10 mg PO QHS 09/15/17 Bicalutamide [Casodex] 50 mg PO DAILY #30 tab 09/16/17 Following Prescrptions Were Given to Patient: Bicalutamide [Casodex] 50 mg PO DAILY #30 tab Primary Care Physician: Claudio Schmitz MD [Primary Care Provider] - Please follow up with your Primary Care Physician in: 1-2 Weeks Please Follow Up With: Eriberto Sibley MD - Complete PSA prior to office visit. When: 6-8 Weeks Disposition: Home Minutes spent on discharge:: 35 Patient Condition:: Stable Meaningful Use Info Meaningful Use Diagnoses (Choose all that apply): None applicable
== END 2017-09-16 16:12 | disposition home or self-care (01) | DRG 542 ==
LOC: ED 15:50 → PCU 15:59
PROVIDERS: Admitting Provider Hospitalist; Emergency Provider Emergency Medicine; Family Provider Internal Medicine; PCP Internal Medicine; Visit Provider Internal Medicine
DX: C79.51 Secondary malignant neoplasm of bone (principal); I50.31 Acute diastolic (congestive) heart failure; E11.9 Type 2 diabetes mellitus without complications; C61 Malignant neoplasm of prostate; Z79.84 Long term (current) use of oral hypoglycemic drugs; Z87.891 Personal history of nicotine dependence; Z92.3 Personal history of irradiation; G89.3 Neoplasm related pain (acute) (chronic); R97.21 Rising PSA following treatment for malignant neoplasm of prostate
CPT/HCPCS: 36415; 71046; 71275; 78306; 80048; 80061; 82962; 83605; 83880; 84443; 84484; 85025; 85027; 93005; 93306; 94640; 99285; Q9957; Q9967; A4216; J1940; J2405

== ENCOUNTER → 2017-12-02 07:43 | Outpatient (CLI) | payer MEDICARE, BC, SELFPAY ==
[2017-12-02 08:50] LABS: PSA,Total- Diagnostic 0.03 ng/mL (0.0-4.0)
== END ==
PROVIDERS: Family Provider Internal Medicine; PCP Internal Medicine; Visit Provider Urology
DX: C61 Malignant neoplasm of prostate (principal); R97.20 Elevated prostate specific antigen [PSA]
CPT/HCPCS: 36415; 84153

== ENCOUNTER → 2019-05-29 10:22 | Outpatient (CLI) | payer MEDICARE, BC, SELFPAY ==
--- NOTE | 2019-05-29 10:33 | NM_ITS ---
CLINICAL: 78-year-old male with reported history of carcinoma of the prostate. WHOLE BODY 99m Tc MDP RADIONUCLIDE BONE SCINTIGRAPHY COMPARISON: Previous whole body bone scintigraphy study dated 09/14/2017 FINDINGS: Following the intravenous administration of 25.0 mCi of 99m Tc MDP, whole body bone images reveal: 1. Newly identified increased radiopharmaceutical concentration is presently noted in the proximal-distal left femoral diaphysis, distal femoral metaphysis, lateral border of the right scapula, distal left femoral metaphysis and persistently visualized in the left anterolateral seventh-eighth ribs. 2. Enhanced tracer concentration remains identified in the bilateral mid foot, the acromioclavicular compartments of both shoulders, glenohumeral compartment of the right shoulder, 10th-12th thoracic, first-second lumbar vertebra. 3. The remaining skeletal structures are scintigraphically unremarkable with normal-appearing renal images and urinary bladder activity identified. The multiple additional previously defined scintigraphic abnormalities noted on the whole body bone scintigraphy study dated 09/14/2017, are not apparent on the present examination. NM/Bone Scan Whole Body IMPRESSION: 1. The increased tracer distribution redefined in the left anterolateral seventh-eighth ribs, currently defined in the left proximal-distal femoral diaphysis and distal femoral metaphysis, right scapula is commensurate with osteoblastic turnover terminated due to skeletal metastatic disease. 2. Degenerative arthritis appears expressed in the bilateral midfoot, both shoulders, thoracic and lumbar spine. 3. There is interval resolution of all prior defined additional osseous scintigraphic abnormalities. 4. Overall compared to the previous whole body bone scintigraphy study dated 09/14/2017, there is a change in the pattern of distribution of skeletal metastatic disease as defined above. Electronically Signed: Robin Rose DO at 0:49 EDT Tel , Service support ,
== END ==
PROVIDERS: Family Provider Internal Medicine; PCP Internal Medicine; Referring Provider Nurse Practitioner; Visit Provider Nurse Practitioner
DX: C79.51 Secondary malignant neoplasm of bone (principal); C61 Malignant neoplasm of prostate
CPT/HCPCS: 78306

== ENCOUNTER → 2019-08-22 11:01 | Outpatient (CLI) | payer MEDICARE, BC, SELFPAY | PROVIDERS: PCP Internal Medicine; Referring Provider Radiology Radiation Oncology; Visit Provider Radiology Radiation Oncology | DX: C61 Malignant neoplasm of prostate (principal); C79.51 Secondary malignant neoplasm of bone | CPT/HCPCS: 79101; A9606 ==

== ENCOUNTER → 2019-09-19 11:35 | Outpatient (CLI) | payer MEDICARE, BC, SELFPAY | PROVIDERS: PCP Internal Medicine; Referring Provider Radiology Radiation Oncology; Visit Provider Radiology Radiation Oncology | DX: C61 Malignant neoplasm of prostate (principal); C79.51 Secondary malignant neoplasm of bone | CPT/HCPCS: 79101; A9606 ==

== ENCOUNTER → 2019-10-17 11:27 | Outpatient (CLI) | payer MEDICARE, BC, SELFPAY | PROVIDERS: PCP Internal Medicine; Referring Provider Radiology Radiation Oncology; Visit Provider Radiology Radiation Oncology | DX: C61 Malignant neoplasm of prostate (principal); C79.51 Secondary malignant neoplasm of bone | CPT/HCPCS: 79101; A9606 ==

== ENCOUNTER → 2019-11-14 11:22 | Outpatient (CLI) | payer MEDICARE, BC, SELFPAY | PROVIDERS: PCP Internal Medicine; Referring Provider Radiology Radiation Oncology; Visit Provider Radiology Radiation Oncology | DX: C61 Malignant neoplasm of prostate (principal); C79.51 Secondary malignant neoplasm of bone | CPT/HCPCS: 79101; A9606 ==

== ENCOUNTER → 2019-12-12 10:57 | Outpatient (CLI) | payer MEDICARE, BC, SELFPAY | PROVIDERS: PCP Internal Medicine; Referring Provider Radiology Radiation Oncology; Visit Provider Radiology Radiation Oncology | DX: C61 Malignant neoplasm of prostate (principal); C79.51 Secondary malignant neoplasm of bone | CPT/HCPCS: 79101; A9606 ==

== ENCOUNTER → 2020-01-09 12:26 | Outpatient (CLI) | payer MEDICARE, BC, SELFPAY | PROVIDERS: PCP Internal Medicine; Referring Provider Radiology Radiation Oncology; Visit Provider Radiology Radiation Oncology | DX: C61 Malignant neoplasm of prostate (principal); C79.51 Secondary malignant neoplasm of bone | CPT/HCPCS: 79101; A9604; A9606 ==

== ENCOUNTER 2020-01-27 14:00 | Emergency (ER) | payer MEDICARE, BC, SELFPAY ==
[2020-01-27] VITALS (11 sets, daily range): BP systolic 109–137; BP diastolic 53–115; PULSE 97–122; RESP 16–24; TEMP 36.1–37.1; O2SAT 95–98; BMI 25.8
--- NOTE | 2020-01-27 15:58 | EKG12_ITS ---
Test Reason : WEAKNESS Blood Pressure : / mmHG Vent. Rate : 098 BPM Atrial Rate : 098 BPM P-R Int : 142 ms QRS Dur : 130 ms QT Int : 354 ms P-R-T Axes : 048 019 042 degrees QTc Int : 451 ms Normal sinus rhythm Possible Left atrial enlargement Right bundle branch block Abnormal ECG Confirmed by STEPHAN BROWN ([id number]), index editor DESTINY MALIK ([id number]) on 01/30/2020 11:53:52 AM Referred By: Confirmed By:STEPHAN BROWN
--- NOTE | 2020-01-27 15:58 | CT_ITS ---
STUDY: CT BRAIN WITHOUT CONTRAST REASON FOR EXAM: Male, 79 years old. SLURRED SPEECH. Hx of prostate cancer. Weakness, SOB, fatigue, dry mouth, loss of appetite RADIATION DOSAGE (If Supplied By Facility): CTDIvol = ( 44.99 ) mGy, DLP = ( 796.11 ) mGycm TECHNIQUE: Transaxial CT imaging of the brain was performed without administration of intravenous contrast material. Individualized dose optimization techniques were used for this CT. COMPARISON: No relevant priors. FINDINGS: Soft tissue density noted in the subcutaneous tissue in the right occipital region. Normal calvarium. Normal size ventricles and extra-axial spaces for the patient''s age. Normal white matter tracts of the cerebral hemispheres. Normal basal ganglia and thalami. Normal brainstem. Normal cerebellum. There is no intracranial hemorrhage. There are no findings of an acute ischemic infarction. Normal visualized paranasal sinuses. CT/Brain/Head without Contrast IMPRESSION: Chronic involutional changes of the brain. No acute hemorrhage Soft tissue density in the subcutaneous tissues of the right occipital region Electronically Signed: Guerrero Cordova MD at 17:30 EDT , Service support ,
[2020-01-27] MEDS: 0.9% Normal Saline 1,000 ML 1000 ML IV ×2 (16:28→20:05)
[2020-01-27 17:03] LABS: Hematocrit 35.7 % (40-54); Hemoglobin 11.4 g/dL (13.0-16.5); International Normalized Ratio 1.7; Mean Corp Hgb Conc 31.9 g/dL (32-36); Mean Corpuscular Hgb 31.3 pg (27.0-32.0); Mean Corpuscular Volume 98.1 fL (80-94); Mean Platelet Vol. 11.9 fl (6.2-12.0); POSITIVE COUNT YES; POSITIVE DIFFERENTIAL YES; POSITIVE MORPHOLOGY YES; Prothrombin Time (Protime)PT. 19.8 SECONDS (11.7-14.9); RBC Distribution Width CV 17.2 % (11.6-14.6); RBC Distribution Width SD 59.6 fl (35.1-43.9); Red Blood Count 3.64 M/mm3 (4.6-6.2)
[2020-01-27 17:04] LABS: Partial Thromboplast Time 33.3 Seconds (24.1-36.2)
--- NOTE | 2020-01-27 17:13 | RAD_ITS ---
STUDY: X-RAY CHEST REASON FOR EXAM: Male, 79 years old. Chest pain/pressure TECHNIQUE: Single AP portable view of the chest. COMPARISON: 09/15/2017 FINDINGS: EKG leads overlie the chest. There are interstitial fibrotic changes of the lungs. There is no demonstrated pleural abnormality. Normal size heart. Normal mediastinum and ame. Normal visualized pulmonary arteries. Normal visualized aortic arch and descending thoracic aorta. There are diffuse degenerative changes of the visualized thoracic spine. There is degenerative osteoarthritis of the bilateral shoulders. There is no demonstrated abnormality of the visualized soft tissue structures of the upper abdomen. RAD/Chest 1 View (Portable) IMPRESSION: Degenerative changes, as described above. No demonstrated acute cardiopulmonary process. Electronically Signed: Guerrero Cordova MD at 17:32 EDT , Service support ,
[2020-01-27 17:14] LABS: AST(SGOT) 981 U/L (15-37); Alanine Aminotransfer ALT/SGPT 382 U/L (16-61); Albumin, Serum 2.6 g/dL (3.2-5.0); Alkaline Phosphatase 428 U/L (45-117); Anion Gap 18 (5-15); BUN 55 mg/dL (7-18); Bilirubin, Direct 2.09 mg/dL (0.00-0.30); Calcium,Total 9.4 mg/dL (8.5-10.1); Chloride 98 mmol/L (98-107); Creatinine, Serum 1.31 mg/dL (0.70-1.30); EST Glomerular Filtration Rate 56 mL/min (>60); Est Glom Filt Rate - Afr Amer 68 mL/min (>60); Estimated Creatinine Clearance 47.21 ml/min; Globulin 3.7 g/dL (2.2-4.2); Glucose 82 mg/dL (74-106); Lipase 40 U/L (73-393); Potassium 4.8 mmol/L (3.5-5.1); Protein, Total 6.3 g/dL (6.4-8.2); Sodium Level 134 mmol/L (136-145)
[2020-01-27 17:19] LABS: Differential Indicated MANUAL DIFF; Platelet Count 40 K/mm3 (150-450)
[2020-01-27 17:27] LABS: Lactic Acid 9.7 mmol/L (0.4-1.9)
[2020-01-27 17:32] LABS: BNP,B-Type NATRIURETIC PEPTIDE 63.3 pg/mL (0-100)
--- NOTE | 2020-01-27 17:32 | CT_ITS ---
STUDY: CT ABDOMEN AND PELVIS WITHOUT CONTRAST REASON FOR EXAM: Male, 79 years old. DIARRHEA/LACTIC ACIDOSIS. Hx of prostate cancer. Weakness, fatigue, dry mouth, change in bowel habits and loss of appetite today. RADIATION DOSAGE (If Supplied By Facility): CTDIvol = ( 14.35 ) mGy, DLP = ( 1245.61 ) mGycm TECHNIQUE: Transaxial images were obtained from the dome of the diaphragm to the symphysis pubis without oral contrast, and without intravenous contrast. Sagittal and coronal images were reconstructed. Individualized dose optimization techniques were used for this CT. COMPARISON: None. FINDINGS: Chronic interstitial changes noted in both lung guy. There are multiple subcentimeter noncalcified nodules in the right lung base along with bilateral pleural effusions and bibasilar atelectasis, worse on the left than the right. Calcified coronary vessels noted. Liver shows fatty infiltration with multiple simple cysts. Additionally, the liver shows a heterogeneous infiltrative appearance suggesting there is likely underlying metastasis, most worrisome area for this is noted in the periphery of the right lobe on axial images 31 through 35. There is gallbladder wall thickening with pericholecystic fluid. Normal spleen. Normal pancreas. Normal right adrenal gland, there is a suspicious low density 1.7 cm left adrenal nodule suggestive of metastasis. No obstructive uropathy, there is a simple left renal cyst measuring 2 cm. Normal visualized stomach. Normal small intestine. Retained stool noted in the colon with scattered colonic diverticulosis. There is non-visualization of the appendix. There is diffuse atherosclerotic calcification of the abdominal aorta, without a demonstrated aneurysm. Normal inferior vena cava. Normal retroperitoneum. Normal urinary bladder. There are prostatic calcifications. There is a right inguinal hernia extending into the scrotum containing fat, the seroma and multiple bowel loops There are diffuse degenerative changes of the visualized lumbar spine, and pelvis. There are suspicious sclerotic changes in T11,, S1, and the right iliac bone that are suspicious for osseous metastasis. CT/Abdomen/Pelvis W IV Cont ONLY IMPRESSION: Heterogeneous appearance of the liver suggests infiltrative process such as metastasis. A suspicious area in the superior border of the right lobe of the liver is suspicious for a focal metastatic lesion Large right inguinal hernia extending into the scrotum containing fat viscera and bowel loops. Suspicious 1.7 cm left adrenal nodule suspicious for metastasis Simple hepatic and left renal cysts no specific follow-up needed. Subcentimeter noncalcified nodules in the right lung base suspicious for metastasis Bilateral pleural effusions with bibasilar atelectasis Sclerotic changes and multiple osseous structures consistent with metastasis Diverticulosis Electronically Signed: Guerrero Cordova MD at 18:35 EDT , Service support ,
--- NOTE | 2020-01-27 17:42 | ED.VIS.GEN ---
History of Present Illness Chief Complaint: Weakness Informant: Patient, Family Narrative: Patient presents the emergency department the chief complaint of weakness, diarrhea, dry mouth, loss of appetite and difficulty speaking. He has a history of prostate cancer with bony metastasis. He is currently under the care of Dr. Rojas with [facility] oncology. He states that the symptoms have been worsening since the 11th of this month. Typically after getting his treatments they would last for about a week and they would resolve but this is not. Denies any fevers. He does note some shortness of breath. Symptoms of shortness of breath seem to be worse with laying down. He states he has had a slight cough. Past Medical History - Allergies and Home Meds Allergies/Adverse Reactions: Allergies No Known Allergies Allergy (Verified 01/27/20 14:05) Primary Care Physician: Claudio Schmitz MD [Primary Care Provider] - Smoking Status: Never smoker - Family History Maternal Family History: Reports: No pertinent history Review of Systems General: Reports: Malaise. Denies: Chills, Fever, Sweats Eyes: Denies: Visual changes - bilaterally, Diplopia ENT: Reports: - - Dry mouth. Denies: Rhinorrhea, Sore throat Cardiovascular: Denies: Chest pain, Palpitations Respiratory: Reports: Dyspnea, Orthopnea. Denies: Cough, Dyspnea on exertion Gastrointestinal: Reports: Nausea, Diarrhea, - - Anorexia. Denies: Abdominal pain, Vomiting, Melena, Hematochezia Genitourinary: Denies: Dysuria, Hematuria, Frequency Musculoskeletal: Denies: Back pain, Extremity Pain Skin: Denies: Rash, Wounds Neurological: Reports: - - Difficulty speaking but not finding words. Denies: Headache, Weakness, Numbness Physical Exam Vital Signs/Narrative: Vital Signs Temp Pulse Resp BP Pulse Ox 01/27/20 16:32 98.4 F 100 22 H 123/60 H 96 01/27/20 15:47 97.6 F L 97 18 127/60 H 97 01/27/20 15:46 99 18 127/66 H 97 01/27/20 14:02 97 F L 105 H 18 131/54 H 97 Inital Vital Signs reviewed: Yes General: Well nourished, Well developed, No Acute Distress Head: Normocephalic, Atraumatic Eyes: Perrl, EOMI ENT: No rhinorrhea, Dry mucous membranes Neck: Supple, Nontender Cardiovascular: Regular rate, No murmurs, Tachycardia Respiratory: No distress, Chest nontender, Decreased Air Movement - On the left base Abdomen: Soft, Nondistended, Normal bowel sounds, Tender - Diffusely tender to palpation. Negative for: Guarding, Rebound tenderness Back: Nontender, Normal Inspection Extremities: Nontender, Edema - Mild leg swelling equal. Symmetric bilaterally Skin: Normal color, No rash Neurological: Alert, Oriented x3, Cranial nerves II-XII grossly intact, Normal Strength, Normal Sensation Psychological: Normal affect, Normal Mood Diagnostic/Tx/Re-eval Clinical Impression(s) from Imaging Studies Brain CT 01/27/20 15:58 IMPRESSION: Chronic involutional changes of the brain. No acute hemorrhage Soft tissue density in the subcutaneous tissues of the right occipital region Electronically Signed: Guerrero Cordova MD at 17:30 EDT , Service support , Chest X-Ray 01/27/20 17:13 IMPRESSION: Degenerative changes, as described above. No demonstrated acute cardiopulmonary process. Electronically Signed: Guerrero Cordova MD at 17:32 EDT , Service support , Abdomen/Pelvis CT 01/27/20 17:32 IMPRESSION: Heterogeneous appearance of the liver suggests infiltrative process such as metastasis. A suspicious area in the superior border of the right lobe of the liver is suspicious for a focal metastatic lesion Large right inguinal hernia extending into the scrotum containing fat viscera and bowel loops. Suspicious 1.7 cm left adrenal nodule suspicious for metastasis Simple hepatic and left renal cysts no specific follow-up needed. Subcentimeter noncalcified nodules in the right lung base suspicious for metastasis Bilateral pleural effusions with bibasilar atelectasis Sclerotic changes and multiple osseous structures consistent with metastasis Diverticulosis Electronically Signed: Guerrero Cordova MD at 18:35 EDT , Service support , ADDENDUM: 01/27/20 1917 IMPRESSION: The last impression should have stated: abnormal gallbladder wall thickening with pericholecystic fluid, cholecystitis suspected Electronically Signed: Guerrero Cordova MD at 19:10 EDT , Service support , Gallbladder Ultrasound 01/27/20 18:19 IMPRESSION: Heterogeneous echotexture within the liver unchanged from the previous CT. Findings are again concerning for possible metastasis though a discrete solid nodule is now identified within the liver. There are cystic nodules noted, largest measures 1.6 x 1.9 x 1.7 cm. Abnormal gallbladder wall thickening with pericholecystic fluid, cholecystitis is suspected. Right pleural effusion Electronically Signed: Guerrero Cordova MD at 19:10 EDT , Service support , Laboratory Last Values WBC SALES REVIEW CLERK 01/27/20 14:50 Corrected WBC 7.7 K/mm3 (4.4-11.0) 01/27/20 14:50 RBC 3.64 M/mm3 (4.6-6.2) L 01/27/20 14:50 Hgb 11.4 g/dL (13.0-16.5) L 01/27/20 14:50 Hct 35.7 % (40-54) L 01/27/20 14:50 MCV 98.1 fL (80-94) H 01/27/20 14:50 MCH 31.3 pg (27.0-32.0) 01/27/20 14:50 MCHC 31.9 g/dL (32-36) L 01/27/20 14:50 RDW Std Deviation 59.6 fl (35.1-43.9) H 01/27/20 14:50 RDW Coeff of Mya 17.2 % (11.6-14.6) H 01/27/20 14:50 Plt Count 40 K/mm3 (150-450) L* 01/27/20 14:50 MPV 11.9 fl (6.2-12.0) 01/27/20 14:50 Neut % (Auto) Not Reportable 01/27/20 14:50 Absolute Neuts (auto) 5.9 X10^3/uL (2.0-7.7) 01/27/20 14:50 Absolute Lymphs (auto) 0.39 X10^3/uL (0.83-4.51) L 01/27/20 14:50 Total Counted 100 (MANUAL DIFF) 01/27/20 14:50 Neutrophils % (Manual) 72 % (47-70) H 01/27/20 14:50 Band Neutrophils % 5 % (0-5) 01/27/20 14:50 Lymphocytes % (Manual) 5 % (19-41) L 01/27/20 14:50 Monocytes % (Manual) 18 % (0-10) H 01/27/20 14:50 Nucleated RBCs/100 WBC 6 % (0-5) H 01/27/20 14:50 Differential Comment 01/27/20 14:50 Diff Path Review November01/27/20 14:50 Platelet Estimate MKD DEC (ADEQ) 01/27/20 14:50 RBC Morphology NORM C+C NORMAL (NORM C&C) 01/27/20 14:50 PT 19.8 SECONDS (11.7-14.9) H 01/27/20 14:50 INR 1.7 01/27/20 14:50 APTT 33.3 Seconds (24.1-36.2) 01/27/20 14:50 pH 7.41 (7.35-7.45) 01/27/20 18:21 Bicarbonate Actual 18.1 mmol/L (22-26) L 01/27/20 18:21 POC Total CO2 19 mmol/L 01/27/20 18:21 Base Excess -7 mmol/L (-2 to +2) L 01/27/20 18:21 O2 Saturation 97 % (95-99) 01/27/20 18:21 ABG pCO2 28.8 mmHg (35-45) L 01/27/20 18:21 ABG pO2 84 mmHG (75-100) 01/27/20 18:21 Sodium 134 mmol/L (136-145) L 01/27/20 14:50 Potassium 4.8 mmol/L (3.5-5.1) 01/27/20 14:50 Chloride 98 mmol/L (98-107) 01/27/20 14:50 Carbon Dioxide 18.0 mmol/L (21.0-32.0) L 01/27/20 14:50 Anion Gap 18 (5-15) H 01/27/20 14:50 BUN 55 mg/dL (7-18) H 01/27/20 14:50 Creatinine 1.31 mg/dL (0.70-1.30) H 01/27/20 14:50 Estim Creat Clear Calc 47.21 ml/min 01/27/20 14:50 Est GFR (MDRD) Af Amer 68 mL/min (>60) 01/27/20 14:50 Est GFR (MDRD) Non-Af 56 mL/min (>60) L 01/27/20 14:50 BUN/Creatinine Ratio 42.0 RATIO (10-20) H 01/27/20 14:50 Glucose 82 mg/dL (74-106) 01/27/20 14:50 Lactic Acid 9.7 mmol/L (0.4-1.9) H* 01/27/20 14:50 Calcium 9.4 mg/dL (8.5-10.1) 01/27/20 14:50 Total Bilirubin 2.80 mg/dL (0.20-1.00) H 01/27/20 14:50 Direct Bilirubin 2.09 mg/dL (0.00-0.30) H 01/27/20 14:50 AST 981 U/L (15-37) H 01/27/20 14:50 ALT 382 U/L (16-61) H 01/27/20 14:50 Alkaline Phosphatase 428 U/L (45-117) H 01/27/20 14:50 Troponin I < 0.015 ng/mL (<0.045) 01/27/20 14:50 B-Natriuretic Peptide 63.3 pg/mL (0-100) 01/27/20 14:50 Total Protein 6.3 g/dL (6.4-8.2) L 01/27/20 14:50 Albumin 2.6 g/dL (3.2-5.0) L 01/27/20 14:50 Globulin 3.7 g/dL (2.2-4.2) 01/27/20 14:50 Lipase 40 U/L (73-393) L 01/27/20 14:50 Urine Color Yellow (Yellow) 01/27/20 18:30 Urine Clarity Clear (Clear) 01/27/20 18:30 Urine pH 5.0 (5.0 - 8.0) 01/27/20 18:30 Ur Specific Ackley 1.010 (1.002-1.030) 01/27/20 18:30 Urine Protein 15 mg/dl (Negative) H 01/27/20 18:30 Urine Glucose (UA) Normal mg/dl (Normal) 01/27/20 18:30 Urine Ketones 5 mg/dl (Negative) H 01/27/20 18:30 Urine Occult Blood Negative /ul (Negative) 01/27/20 18:30 Urine Nitrite Negative (Negative) 01/27/20 18:30 Urine Bilirubin Negative mg/dL (Negative) 01/27/20 18:30 Urine Urobilinogen Normal mg/dl (Normal) 01/27/20 18:30 Ur Leukocyte Esterase Negative /ul (Negative) 01/27/20 18:30 Urine RBC 0 SEEN /hpf (0-5) 01/27/20 18:30 Urine WBC 0 SEEN /hpf (0-5) 01/27/20 18:30 Ur Squamous Epith Cells 0 SEEN /hpf (0-5) 01/27/20 18:30 Urine Bacteria 0 SEEN /hpf (None Seen) 01/27/20 18:30 Urine Mucus 0 SEEN /hpf (<or=2+) 01/27/20 18:30 - EKG Initial EKG Interpretation: Sinus Tachycardia - EKG demonstrates a sinus tachycardia at a rate of 98 with right bundle branch block. No significant ectopy or concerning features of ACS - Medical Decision Making IV was established and the patient received IV fluids. After his lactic acid returned at 9.7 additional IV fluids were ordered. CT shows pericholecystic fluid and numerous mets to the liver which are new. He received Zosyn and was taken for formal gallbladder ultrasound which shows is thickened gallbladder wall and pericholecystic fluid but a negative Singh's and no stones seen. His platelet count is 40. His white count is normal and with 5 bands. My recommendation after discussing with local surgery was that he should go to the [facility] to the ICU. Patient spent greater than an hour and a half deciding whether or not he wanted this to be done. He was debated about signing out AGAINST MEDICAL ADVICE to go home and take a shower which is on my list of things to do and then to discuss with his oncologist on Monday. I assured him that his oncologist would want the best possible care for him tonight. Eventually the patient consented and he was accepted to the ICU. We are waiting repeat lactic acid. Dr. Jewell who is covering for his oncologist was contacted and updated. - Critical Care Time Critical care time (excluding procedures): 30-74 minutes - 45 minutes, Including time spent:, Discussing w/Patient &/or Family/Operations Tech, Discussing w/Consultants, Arranging Admission or Transfer, Performing Direct Patient Care at Bedside ED Disposition - Plan for ED Patient: Diagnosis: Thrombocytopenia, Lactic acidosis, Dehydration, Acute cholecystitis, Septic shock, Prostate cancer metastatic to liver, DM2 (diabetes mellitus, type 2), Pleural effusion Referrals: Claudio Schmitz MD [Primary Care Provider] -
[2020-01-27] MEDS: 0.9% Normal Saline 1,000 ML 999 ML IV (17:46)
[2020-01-27 17:47] LABS: Total Cells Counted 100 (MANUAL DIFF)
[2020-01-27 17:58] LABS: Neutrophil-Band 5 % (0-5); Neutrophil-Segmented 72 % (47-70)
[2020-01-27 17:59] LABS: Corrected WBC 7.7 K/mm3 (4.4-11.0); Lymphocyte 5 % (19-41); Monocyte 18 % (0-10); Nucleated Red Bld Cells,Manual 6 % (0-5)
[2020-01-27 18:01] LABS: Absolute Neutrophil Count 5.9 X10^3/uL (2.0-7.7)
[2020-01-27 18:02] LABS: Absolute Lymphocyte Count 0.39 X10^3/uL (0.83-4.51); Platelet Estimate MKD DEC (ADEQ); Red Cell Morphology NORM C+C NORMAL (NORM C&C)
--- NOTE | 2020-01-27 18:19 | US_ITS ---
STUDY: ABDOMINAL ULTRASOUND - RIGHT UPPER QUADRANT REASON FOR VISIT: Male, 79 years old ABD PAIN TECHNIQUE: Ultrasound evaluation of the right upper quadrant was performed with real-time and static fischer-scale imaging. TECHNICAL QUALITY: Limited. Examination limited by bowel gas. COMPARISON: CT from earlier today FINDINGS: Liver: The liver measures 20.1 cm. There is a heterogeneous echogenicity of the liver. The bile ducts are within normal limits. There is hepatic color flow. The direction of portal flow is hepatopetal. There is no demonstrated mass lesion, there are multiple hepatic cysts, largest measures 1.6 x 1.9 x 1.7 cm.. Gallbladder: Normal distended gallbladder. The gallbladder wall measures 8 mm. There is a negative sonographic Singh''s sign. There is pericholecystic fluid. There are no gallstones. Common Bile Duct (C.B.D.): The common bile duct measures 6 mm. Pancreas: Visualized pancreas is sonographically normal Right Kidney: Normal size of the right kidney. The right kidney measures 10.1 x 4.8 x 4.1 cm. Normal renal cortex. The right cortex measures 1.2 cm. There is no demonstrated renal mass or cyst. There is no right hydronephrosis. Small right pleural effusion US/Gallbladder IMPRESSION: Heterogeneous echotexture within the liver unchanged from the previous CT. Findings are again concerning for possible metastasis though a discrete solid nodule is now identified within the liver. There are cystic nodules noted, largest measures 1.6 x 1.9 x 1.7 cm. Abnormal gallbladder wall thickening with pericholecystic fluid, cholecystitis is suspected. Right pleural effusion Electronically Signed: Guerrero Cordova MD at 19:10 EDT , Service support ,
[2020-01-27 18:35] LABS: Bacteria 0 SEEN /hpf (None Seen); Mucous, Urine 0 SEEN /hpf (<or=2+); Red Blood Cells-Urine 0 SEEN /hpf (0-5); Squamous Epithelial Cells - UA 0 SEEN /hpf (0-5); White Blood Cells 0 SEEN /hpf (0-5)
[2020-01-27 18:36] LABS: Base Excess -7 mmol/L (-2 to +2); Bicarbonate 18.1 mmol/L (22-26); PO2 84 mmHG (75-100); SO2 97 % (95-99); Total Carbon Dioxide 19 mmol/L; pCO2 28.8 mmHg (35-45); pH 7.41 (7.35-7.45)
[2020-01-27 18:46] LABS: Color, Urine Yellow (Yellow); Glucose, Dipstick Normal (Normal); Ketone-Dipstick 5 mg/dl (Negative); Leukocyte Esterase-Dipstick Negative /ul (Negative); Nitrite-Dipstick Negative (Negative); Occult Blood-Urine Negative /ul (Negative); Protein-Dipstick 15 mg/dl (Negative); Urine Bilirubin Dipstick Negative (Negative); Urine Clarity Clear (Clear); Urine Urobilinogen Normal (Normal)
[2020-01-27 20:53] LABS: Reflex Lactate? Y
[2020-01-27] MEDS: 0.9% Normal Saline 1,000 ML 150 ML IV (21:00)
[2020-01-27 21:49] LABS: Lactic Acid 6.4 mmol/L (0.4-1.9)
[2020-01-28 05:28] LABS: Blood Gas Specimen Type ART; SITE L BRACHIAL
[2020-01-28 05:29] LABS: O2 Delivery Device Room Air
[2020-01-28 11:42] LABS: Pathologist Review Reviewed
== END 2020-01-27 23:01 | disposition short-term general hospital (02) ==
PROVIDERS: Emergency Provider Emergency Medicine; PCP Internal Medicine
DX: D69.6 Thrombocytopenia, unspecified (principal); E87.2 Acidosis; E86.0 Dehydration; K81.0 Acute cholecystitis; R65.21 Severe sepsis with septic shock; C61 Malignant neoplasm of prostate; D01.5 Carcinoma in situ of liver, gallbladder and bile ducts; E11.9 Type 2 diabetes mellitus without complications; J90 Pleural effusion, not elsewhere classified; Z79.84 Long term (current) use of oral hypoglycemic drugs
CPT/HCPCS: 36600; 70450; 71045; 74177; 76705; 80048; 80076; 81001; 82803; 83605; 83690; 83880; 84484; 85025; 85610; 85730; 87040; 87086; 87088; 93005; 96361; 96365; 96366; 99285; J7030; Q9967; A4216